=== PATIENT | female | born 1945 | race Two or more races ===

== ENCOUNTER 2020-12-17 07:22 | Outpatient (CLI) | payer OTHER | END 2020-12-17 07:23 | disposition home or self-care (01) | LOC: NUCLEAR 07:22 | PROVIDERS: ATTEND Internal Medicine Hematology & Oncology | DX: C50.411 Malignant neoplasm of upper-outer quadrant of right female breast (principal) | CPT/HCPCS: 78816; A9552 ==

== ENCOUNTER 2020-12-24 07:17 | Outpatient (CLI) | payer OTHER | END 2020-12-24 07:18 | disposition home or self-care (01) | LOC: NUCLEAR 07:17 | PROVIDERS: ATTEND Internal Medicine Hematology & Oncology | DX: I10 Essential (primary) hypertension (principal) ==

== ENCOUNTER 2021-03-20 05:47 | Day surgery (SDC) | payer OTHER ==
[~2021-03-20 05:47] MED LIST: ACID CONTROLLER20 MG PO; ADULT LOW DOSE81 M1 PO; ATORVASTATIN CA10 MG PO; FENOFIB PO; FORTAMET1000 MG PO; HUM; HUMLOG; LEVOTHYROXINE100 MC1 PO; ORPHENADRINE PO
== END 2021-03-20 16:15 | disposition home or self-care (01) ==
LOC: CIR.AMB 05:47
PROVIDERS: ATTEND Surgery
DX: C50.811 Malignant neoplasm of overlapping sites of right female breast (principal); C77.3 Secondary and unspecified malignant neoplasm of axilla and upper limb lymph nodes; Z20.822 Contact with and (suspected) exposure to COVID-19

== ENCOUNTER 2021-11-03 07:31 | Outpatient (CLI) | payer OTHER | END 2021-11-03 10:45 | disposition home or self-care (01) | LOC: NUCLEAR 07:31 | PROVIDERS: ATTEND Internal Medicine Hematology & Oncology | DX: C50.511 Malignant neoplasm of lower-outer quadrant of right female breast (principal) | CPT/HCPCS: 78813; A9552 ==

== ENCOUNTER → 2023-06-15 | Outpatient (CLI) | payer OTHER | END | disposition home or self-care (01) | LOC: NUCLEAR 07:16 | PROVIDERS: ATTEND Internal Medicine Hematology & Oncology | DX: C50.511 Malignant neoplasm of lower-outer quadrant of right female breast (principal) | CPT/HCPCS: 78815; A9552 ==

== ENCOUNTER 2024-05-08 07:41 | Outpatient (CLI) | payer OTHER | END 2024-05-08 07:42 | disposition home or self-care (01) | LOC: NUCLEAR 07:41 | PROVIDERS: ATTEND Internal Medicine Hematology & Oncology | DX: C50.511 Malignant neoplasm of lower-outer quadrant of right female breast (principal); I10 Essential (primary) hypertension | CPT/HCPCS: 78816; A9552 ==